=== PATIENT | male | born 1950 | race Caucasian/White ===

== ENCOUNTER 2022-05-15 09:43 | Emergency (ER) | payer MEDICARE ==
[~2022-05-15] VITALS: Ht 170.2 cm; Wt 88.4 kg
[2022-05-15 09:53] VITALS: BP 156/84
[2022-05-15 10:00] VITALS: BP 140/79
[2022-05-15 10:30] VITALS: BP 135/79
[2022-05-15 11:01] VITALS: BP 125/75
[2022-05-15 11:30] VITALS: BP 133/69
[2022-05-15] MEDS ORDERED: VALACYCLOVIR HCL1 GM PO (11:41)
[2022-05-15] MEDS ORDERED: CEPHALEXIN500 M1 PO (11:41)
[2022-05-15 11:47] VITALS: BP 133/69
== END 2022-05-15 11:52 | disposition home or self-care (01) ==
LOC: ED 09:43
DX: B02.9 Zoster without complications (principal); L03.115 Cellulitis of right lower limb; I10 Essential (primary) hypertension

== ENCOUNTER 2024-05-30 11:50 | Emergency (ER) | payer MEDICARE, OTHER ==
[~2024-05-30] VITALS: Ht 170.2 cm; Wt 88.9 kg
[~2024-05-30 11:50] MED LIST: CEPHALEXIN500 M1 PO; VALACYCLOVIR HCL1 GM PO
[2024-05-30 15:10] VITALS: BP 140/81
[2024-05-30 15:15] VITALS: BP 136/75
[2024-05-30] MEDS ORDERED: BACTRIM DS1 TAB PO (15:41)
[2024-05-30 15:55] VITALS: BP 136/75
== END 2024-05-30 15:55 | disposition home or self-care (01) ==
LOC: ED 11:50
PROC: 0H96XZZ Drainage of Back Skin, External Approach (ICD-10-PCS; principal; 2024-05-30)
DX: L72.3 Sebaceous cyst (principal); I10 Essential (primary) hypertension

== ENCOUNTER 2024-05-31 06:56 | Emergency (ER) | payer MEDICARE, OTHER ==
[~2024-05-31] VITALS: Ht 170.2 cm; Wt 88.4 kg
[~2024-05-31 06:56] MED LIST changes: +BACTRIM DS1 TAB PO
[2024-05-31 07:11] VITALS: BP 145/77
[2024-05-31 07:15] VITALS: BP 139/80
[2024-05-31 07:41] VITALS: BP 139/80
== END 2024-05-31 08:08 | disposition home or self-care (01) ==
LOC: ED 06:56
DX: Z48.01 Encounter for change or removal of surgical wound dressing (principal); I10 Essential (primary) hypertension